=== PATIENT | female | born 1940 | race Caucasian/White ===

== ENCOUNTER 2016-10-06 08:07 | Outpatient (CLI) | payer MEDICARE ==
--- NOTE | 2016-10-06 10:08 | DIAGNOSTIC IMAGING REPORT ---
PROCEDURE: US KIDNEY/RENAL COMPLETE INDICATION: DECREASED RENAL FUNCTION TECHNIQUE: Millan scale and color Doppler sonographic imaging of the kidneys and urinary bladder was obtained. Intrarenal resistive indices were calculated when appropriate. COMPARISON: None. FINDINGS: The right kidney measures 9.5 6.4 x 5.7 cm. Normal cortical thickness and echogenicity. No hydronephrosis, cyst, solid mass, or shadowing calculus. Normal color Doppler blood flow throughout the kidney. Resistive indices in the intrarenal parenchymal arteries range from 0.49-0.65. Spectral Doppler wave form morphology of acute arteries demonstrates slight tardus parvus morphology in the mid and inferior pole. The left kidney measures 8.9 x 6.6 x 5.8 cm. Normal cortical thickness and echogenicity. 2 cm corticomedullary cyst in the mid to lower pole. No solid mass or shadowing calculus. Normal color Doppler blood flow throughout the kidney. Resistive indices in the intrarenal parenchymal arteries range from 0.58-0.65. Spectral Doppler wave form morphology of acute arteries demonstrates slight tardus parvus morphology in the mid and lower pole. The filled urinary bladder has a volume of 99 ml and a post void residual of 77 ml The urinary bladder wall is uniform in thickness without suspicious thickening or irregularity. No bladder debris, calcification or mass. Bilateral ureteral jets were visible indicating ureteral patency. IMPRESSION: 1. 2 cm left cortical medullary renal cyst, otherwise normal renal morphology bilaterally. 2. Slight tardus parvus wave form morphology in the parenchymal arteries of each kidney raising possibility of renal artery stenosis. Correlate clinically. 3. Moderate postvoid residual of the urinary bladder.
== END 2016-10-06 23:00 ==
LOC: US SRH 08:07
DX: N28.1 Cyst of kidney, acquired (principal)